=== PATIENT | female | born 1975 ===

== ENCOUNTER → 2021-09-07 | Outpatient (CLI) | payer BC | LOC: CARD 11:30 | PROVIDERS: ATTEND Internal Medicine Cardiovascular Disease | DX: R06.09 Other forms of dyspnea (principal) | CPT/HCPCS: 93306 ==

== ENCOUNTER → 2021-09-25 | Outpatient (CLI) | payer BC ==
[~2021-09-25] MED LIST: REGADENOSON 0.4 MG/5 ML SYR (LEXISCAN) IV ONE
[2021-09-25] MEDS: CATHETER FLUSH 10 ML SYR IVP PRN ×2 (07:52→09:19)
[2021-09-25 09:17] VITALS: BP 145/94
== END ==
LOC: CARD 08:00
PROVIDERS: ATTEND Internal Medicine Cardiovascular Disease
DX: R07.89 Other chest pain (principal)
CPT/HCPCS: 78452; 93017; A9502

== ENCOUNTER → 2021-12-21 | Outpatient (CLI) | payer BC ==
--- NOTE | 2021-12-21 13:05 | Diagnostic Imaging Report ---
PROCEDURE: MR imaging cervical spine without contrast. TECHNIQUE: Multiplanar, multisequence MR imaging of the cervical spine was performed without contrast. INDICATION: Neck and shoulder pain. FINDINGS: Cervical statures are normal. The alignment is anatomic. There is a fat-containing benign hemangioma in the T3 vertebral body. Cervical spinal cord itself exhibits a normal volume, morphology, and normal signal intensity. There is enlargement, heterogeneity, and mass effect in the left thyroid lobe. It has central fluid-like attenuation but is irregular and warrants a dedicated thyroid ultrasound on a nonemergent outpatient basis. Craniocervical relationship is normal. The C1-C2 and the C2-C3 levels and discs are normal. No stenosis. C3-C4: Very slight disc desiccation. There is some left-sided uncovertebral joint spurring and left greater than right facet arthrosis. Canal is widely patent, but there is [id number] narrowing of the left neural foramen. C4-C5: There is some degenerative facet disease, greater left. There is mild left foraminal stenosis. The canal is widely patent. C5-C6: Mild osteophyte disc material at this level results in no canal or foraminal stenosis. C6-C7: Osteophyte disc material is asymmetric, greater right, mildly indenting the right ventral thecal sac but resulting in no substantial canal stenosis. Disc material and uncovertebral joint spurring, however, at least moderately stenose the right neural foramen. The left is patent. C7-T1: This level and disc are unremarkable. There is no stenosis. IMPRESSION: 1. 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 2. Normal cord. Normal alignment. No substantial canal stenosis. 3. Indeterminate left lobe thyroid mass. Nonemergent sonographic correlation recommended. Dictated by: Dictated on workstation # [id number]
== END ==
LOC: RAD 09:30
PROVIDERS: ATTEND Chiropractor
DX: M50.90 Cervical disc disorder, unspecified, unspecified cervical region (principal); M50.30 Other cervical disc degeneration, unspecified cervical region; D18.09 Hemangioma of other sites; M50.21 Other cervical disc displacement, high cervical region; M25.78 Osteophyte, vertebrae; M47.812 Spondylosis without myelopathy or radiculopathy, cervical region
CPT/HCPCS: 72141